=== PATIENT | male | born 1965 | race Caucasian/White ===

== ENCOUNTER 2023-05-03 08:35 | Outpatient (CLI) | payer OTHER, SELFPAY ==
--- NOTE | 2023-05-03 11:00 | NEURO_ITS ---
Impression: # Complains of nocturnal paresthesia and numbness of hands. # Bilateral Carpal Tunnel Syndrome, right more than left # Bilateral ulnar neuropathy across the elbows. # Needle/EMG exam no requested. Nerve Conduction Studies Anti Sensory Summary Table Stim Site NR Peak (ms) P-T Amp (?V) Site1 Site2 Delta-P (ms) Dist (cm) Weston (m/s) Left Median Anti Sensory (2-3nd Digit) Wrist 4.7 16.0 Wrist 2-3nd Digit 4.7 14.0 30 Wrist 4.7 14.7 Wrist 2-3nd Digit 4.7 14.0 30 Right Median Anti Sensory (2-3nd Digit) Wrist 6.5 24.7 Wrist 2-3nd Digit 6.5 14.0 22 Wrist 7.1 16.1 Wrist 2-3nd Digit 6.5 14.0 22 Left Radial Anti Sensory (Base 1st Digit) Wrist 2.0 25.3 Wrist Base 1st Digit 2.0 0.0 Right Radial Anti Sensory (Base 1st Digit) Wrist 2.4 17.4 Wrist Base 1st Digit 2.4 0.0 Left Ulnar Anti Sensory (5th Digit) Wrist 2.5 53.6 Wrist 5th Digit 2.5 14.0 56 Right Ulnar Anti Sensory (5th Digit) Wrist 2.7 69.0 Wrist 5th Digit 2.7 14.0 52 Motor Summary Table Stim Site NR Onset (ms) O-P Amp (mV) Site1 Site2 Delta-0 (ms) Dist (cm) Weston (m/s) Left Median Motor (Abd Poll Brev) Wrist 4.8 3.3 Elbow Wrist 5.6 29.0 52 Elbow 10.4 2.9 Right Median Motor (Abd Poll Brev) Wrist 6.6 2.2 Elbow Wrist 5.1 27.0 53 Elbow 11.7 2.2 Left Ulnar Motor (Abd Dig Minimi) Wrist 2.7 5.9 A Elbow Wrist 6.9 30.0 43 A Elbow 9.6 4.4 B Elbow Wrist 4.2 24.0 57 B Elbow 6.9 4.3 Right Ulnar Motor (Abd Dig Minimi) Wrist 2.3 7.3 A Elbow Wrist 6.8 31.0 46 A Elbow 9.1 5.7 B Elbow Wrist 3.8 20.0 53 B Elbow 6.1 6.0 F Wave Studies NR F-Lat (ms) L-R F-Lat (ms) Left Median (Mrkrs) (Abd Poll Brev) 33.30 1.62 Right Median (Mrkrs) (Abd Poll Brev) 34.92 1.62 Left Ulnar (Mrkrs) (Abd Dig Min) 31.90 0.83 Right Ulnar (Mrkrs) (Abd Dig Min) 32.73 0.83 MTDD
== END 2023-05-03 08:36 | disposition home or self-care (01) ==
LOC: ANHNEURO 08:36
PROVIDERS: PCP Family Medicine Adolescent Medicine; Visit Provider Family Medicine Adolescent Medicine
DX: G56.03 Carpal tunnel syndrome, bilateral upper limbs (principal); G56.23 Lesion of ulnar nerve, bilateral upper limbs
CPT/HCPCS: 95886; 95911